=== PATIENT | female | born 1950 | race African-American/Black ===

== ENCOUNTER 2016-08-29 11:04 | Inpatient (IN) ==
[2016-08-29 11:45] LABS: MANUAL DIFF NEEDED? NO
[2016-08-29 11:45] LABS: BLOOD TYPE ARTERIAL; SAMPLE BLOOD
[2016-08-29 11:46] LABS: ALLEN TEST YES; BE 3.7 mmoll (-3.0-3.0); DRAW SITE L RADIAL; METHB 1.2 % (0.0-1.5); O2(CT) 17.2 mL/dL (15.0-23.0); PCO2(98.6) 43 mmHg (35-45); PO2(98.6) 78 mmHg (60-100); SAO2 97.3 % (95.0-100.0); THB 12.9 g/dL (11.5-17.4); pH(98.6) 7.43 (7.35-7.45)
[2016-08-29 11:47] LABS: MODALITY ROOM AIR
[2016-08-29] MEDS ORDERED: NS 1,000 ML IV ONE (11:48)
[2016-08-29] MEDS ORDERED: HUMULIN R IV ONE (11:48)
[2016-08-29 11:49] LABS: BASO% 0.9 % (0.0-0.8); EOS# 0.57 X1000 (0.0-0.7); EOS% 10.4 % (0.0-10.0); HEMATOCRIT 40.4 % (37.0-47.0); HEMOGLOBIN 12.8 g/dL (12.0-16.0); LYMPH# 2.11 X1000 (1.2-3.4); LYMPH% 38.5 % (20.5-51.1); MCH 27.5 PG (27-31); MCHC 31.7 g/dL (33-37); MCV 86.7 FL (81-99); MONO# 0.45 X1000 (0.11-0.59); MONO% 8.2 % (1.7-9.3); MPV 11.7 FL (7.4-10.4); PLT 224 X1000 (130-400); RBC 4.66 XMIL (4.2-5.4)
[2016-08-29 12:00] LABS: INR 0.99; PROTIME 10.4 Seconds (9.2-11.7); PTT 29.6 Seconds (22.0-36.0)
[2016-08-29 12:15] LABS: ACETONE SERUM NEGATIVE (NEGATIVE); AGAP 12; ALBUMIN 3.9 g/dL (3.5-5.0); ALKALINE PHOSPHATASE 110 U/L (32-104); BUN 10 mg/dL (8-22); CALCIUM 9.2 mg/dL (8.8-10.2); CHLORIDE 95 mmol/L (98-107); CK PROFILE 115 U/L (24-173); COSMO 287; GOT 12 U/L (10-30); GPT 13 U/L (10-36); POTASSIUM 4.4 mmol/L (3.5-5.1); SODIUM 135 mmol/L (136-145); TCO2 28 mmol/L (25-35); TOTAL BILIRUBIN 0.53 mg/dL (0.20-1.00); TOTAL PROTEIN 6.6 g/dL (6.3-8.3)
--- NOTE | 2016-08-29 12:15 | Diag Imaging Result Doc PS360 ---
EXAM: HEAD W/O CONTRAST HISTORY: AMS TECHNIQUE: CT of the head without contrast COMMENT: There is some cortical atrophy in the left occipital lobe which was also present on 01/16/2016. There is no evidence of bleed mass effect or abnormal extra-axial fluid collection. The visualized paranasal sinuses are clear. There is persistence the metopic suture. IMPRESSION: Stable since 01/16/2016. Electronically signed by Jhon Ahn 08/29/2016 12:12 PM
--- NOTE | 2016-08-29 13:38 | Diag Imaging Result Doc PS360 ---
EXAM: CHEST-PORTABLE HISTORY: AMS TECHNIQUE: AP portable at 1200 COMMENT: The inspiration is suboptimal. There is been no significant change since 09/14/2015. IMPRESSION: Stable chest. Electronically signed by Jhon Ahn 08/29/2016 1:36 PM
[2016-08-29 13:59] LABS: URINE CULTURE NEEDED? NO; URINE MICRO REVIEW NEEDED? NO; URINE SOURCE CATH
[2016-08-29 14:10] LABS: BILIRUBIN URINE NEGATIVE (NEGATIVE); BLOOD URINE NEGATIVE (NEGATIVE); COLOR YELLOW; GLUCOSE URINE >1000 mg/dL (NEGATIVE); LEUKOCYTES URINE NEGATIVE (NEGATIVE); NITRITE URINE NEGATIVE (NEGATIVE); PROTEIN URINE TRACE mg/dL (NEGATIVE); SP GRAVITY URINE 1.012; TURBIDITY URINE CLEAR (CLEAR); UROBILINOGEN URINE NORMAL (NORMAL)
[2016-08-29 14:11] LABS: UR EPITHELIAL CELLS <10 /HPF (<10); URINE BACTERIA NEGATIVE /HPF; URINE RBC <10 /HPF (<10); URINE WBC <10 /HPF (<10)
[2016-08-29 14:12] LABS: UR AMPHETAMINES QUAL NONE DETECTED (NONE DETECT); UR BARBITUATES QUAL NONE DETECTED (NONE DETECT); UR BENZODIAZEPIN QUAL NONE DETECTED (NONE DETECT); UR CANNABINOIDS QUAL NONE DETECTED (NONE DETECT); UR COCAINE QUAL NONE DETECTED (NONE DETECT); UR METHADONE QUAL NONE DETECTED (NONE DETECT); UR OPIATES QUAL NONE DETECTED (NONE DETECT); UR OXYCODONE QUAL NONE DETECTED (NONE DETECT); UR PCP QUAL NONE DETECTED (NONE DETECT)
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
--- NOTE | 2016-08-29 16:52 | Diag Imaging Result Doc PS360 ---
EXAM: MRI BRAIN W/O CONTRAST HISTORY: stroke like symptoms TECHNIQUE: T1 sagittal, T2, FLAIR and T1 axial DWI axial, gradient coronal. COMMENT: There is no evidence of restricted diffusion bleed or abnormal extra-axial fluid collection. There is minimal hyperintensity in the periventricular white matter posteriorly particular around the atrium of the left lateral ventricle. There are no previous studies. IMPRESSION: Chronic microvascular changes. No evidence of acute disease Electronically signed by Jhon Ahn 08/29/2016 4:49 PM
--- NOTE | 2016-08-29 16:53 | Diag Imaging Result Doc PS360 ---
EXAM: MRA BRAIN W/O CONTRAST HISTORY: stroke like symptoms TECHNIQUE: MRA 3-D [id number] COMMENT: There is no evidence of major branch occlusion or aneurysm. Possibility of small vessel disease cannot be excluded. IMPRESSION: No major branch occlusion. Electronically signed by Jhon Ahn 08/29/2016 4:51 PM
--- NOTE | 2016-08-29 16:55 | Diag Imaging Result Doc PS360 ---
EXAM: MRA NECK W/O CONT HISTORY: stroke like symptoms TECHNIQUE: Axial 2-D [id number] COMMENT: There is considerable motion artifact. There is no evidence of occlusion of the either common or internal carotid artery. The majority of the both vertebral arteries are patent. IMPRESSION: No significant abnormality. Electronically signed by Jhon Ahn 08/29/2016 4:52 PM
[2016-08-29] MEDS ORDERED: ZOFRAN IV PRN (17:20)
[2016-08-29] MEDS ORDERED: TYLENOL PO PRN (17:20)
[2016-08-29] MEDS: HUMULIN R SUBQ SCH ×2 (19:04→22:45)
[2016-08-29] MEDS: NS 1,000 ML IV SCH (19:04)
[2016-08-30] MEDS: NS 1,000 ML IV SCH ×4 (01:07→17:17)
[2016-08-30] MEDS: HUMULIN R SUBQ SCH ×4 (06:03→21:36)
[2016-08-30 06:42] LABS: MANUAL DIFF NEEDED? NO
[2016-08-30 06:51] LABS: BASO% 0.7 % (0.0-0.8); EOS# 0.54 X1000 (0.0-0.7); EOS% 9.4 % (0.0-10.0); HEMATOCRIT 39.2 % (37.0-47.0); HEMOGLOBIN 12.3 g/dL (12.0-16.0); LYMPH# 2.32 X1000 (1.2-3.4); LYMPH% 40.3 % (20.5-51.1); MCH 27.3 PG (27-31); MCHC 31.4 g/dL (33-37); MCV 87.1 FL (81-99); MONO# 0.44 X1000 (0.11-0.59); MONO% 7.7 % (1.7-9.3); MPV 11.5 FL (7.4-10.4); NEUT% 41.9 % (42.2-75.2); PLT 222 X1000 (130-400)
[2016-08-30 06:58] LABS: HEMOGLOBIN A1C 12.8 % (4.8-6.0)
[2016-08-30 07:00] LABS: INR 1.01; PROTIME 10.6 Seconds (9.2-11.7); PTT 29.6 Seconds (22.0-36.0)
[2016-08-30 07:07] LABS: AGAP 13; ALBUMIN 3.4 g/dL (3.5-5.0); ALKALINE PHOSPHATASE 97 U/L (32-104); BUN 7 mg/dL (8-22); CALCIUM 9.3 mg/dL (8.8-10.2); CHLORIDE 104 mmol/L (98-107); COSMO 282; GOT 14 U/L (10-30); GPT 11 U/L (10-36); MAGNESIUM 1.6 mg/dL (1.5-2.7); SODIUM 142 mmol/L (136-145); TCO2 25 mmol/L (25-35); TOTAL BILIRUBIN 0.57 mg/dL (0.20-1.00); TOTAL PROTEIN 6.4 g/dL (6.3-8.3)
[2016-08-30 07:26] LABS: FREE T4 1.18 ng/dL (0.93-1.70)
[2016-08-30] MEDS: PRILOSEC PO SCH (09:05)
[2016-08-30] MEDS: ASPIRIN PO SCH (09:05)
[2016-08-30] MEDS: LOVENOX SUBQ SCH (09:05)
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
[2016-08-31] MEDS: NS 1,000 ML IV SCH ×2 (02:06→09:58)
[2016-08-31] MEDS: HUMULIN R SUBQ SCH ×2 (06:31→12:23)
--- NOTE | 2016-08-31 09:14 | PROGRESS NOTE ---
DATE: 08/31/2016 SUBJECTIVE: Ms. Alvarez is awake, alert, attentive. She is not dysarthric. She reports no new or different memory regarding the incident prior to her admission. I told her that there are some questions regarding her cognitive function, and that she should be careful with activities until that can be sorted out as an outpatient. I offered to see her in the office to check on that. No new suggestion from neurologic standpoint today. Thanks for asking me to see Ms. Alvarez. cc: Salina Key III, MD
[2016-08-31] MEDS: PRILOSEC PO SCH (09:57)
[2016-08-31] MEDS: ASPIRIN PO SCH (09:57)
[2016-08-31] MEDS: LOVENOX SUBQ SCH (09:58)
[2016-08-31 13:45] VITALS: BP 153/93
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
== END 2016-08-31 15:54 | disposition home health service (06) ==
LOC: ED 11:04 → 3N 16:18
PROVIDERS: ATTEND Emergency Medicine